=== PATIENT | male | born 1950 | race Caucasian/White ===

== ENCOUNTER → 2020-08-05 | Outpatient (CLI) | payer MEDICARE, OTHER | LOC: CPPFTMAIN 08:35 | PROVIDERS: ATTEND Nurse Practitioner Family | DX: R05 Cough (principal) | CPT/HCPCS: 94060; 94726; 94729 ==

== ENCOUNTER → 2020-09-03 | Outpatient (CLI) | payer MEDICARE, OTHER ==
--- NOTE | 2020-09-03 09:36 | XR ---
EXAMINATION TYPE: XR lumbar spine 2 or 3V DATE OF EXAM: 09/03/2020 COMPARISON: None HISTORY: Pain TECHNIQUE: 3 view lumbar spine FINDINGS: There are 5 lumbar-type vertebral bodies. Pedicles are intact. Disc space narrowing is pres ent L4-5. Some disc space narrowing is also present L2-3. Posterior disc space narrowing at L1-2 may be present. Remaining disc heights are preserved. Vertebral body heights are preserved. Alignment is normal. Vascular calcification is within the aorta. IMPRESSION: 1. No acute osseous abnormality three-view lumbar spine
== END | disposition home or self-care (01) ==
LOC: RADXRMAIN 08:50
PROVIDERS: ATTEND Family Medicine
DX: M54.5 Low back pain (principal)
CPT/HCPCS: 72100

== ENCOUNTER 2021-11-09 09:00 | Emergency (ER) | payer MEDICARE, OTHER ==
[2021-11-09] MEDS ORDERED: HYDROmorphone 0.5 MG/0.5 ML SYRINGE IM STA (09:14)
[2021-11-09] MEDS ORDERED: DEXAMETHASONE SOD PHOSPHATE 10 MG/ML 1 ML VIAL IM STA (09:15)
[2021-11-09] MEDS ORDERED: HYDROmorphone 0.5 MG/0.5 ML SYRINGE IVP STA (09:24)
[2021-11-09] MEDS ORDERED: DEXAMETHASONE SOD PHOSPHATE 10 MG/ML 1 ML VIAL IVP STA (09:25)
--- NOTE | 2021-11-09 09:25 | ED ---
General Adult HPI - General Chief complaint: Back Pain/Injury Stated complaint: Rt. hip pain Time Seen by Provider: 11/09/21 09:02 Source: patient, EMS, RN notes reviewed, old records reviewed Mode of arrival: EMS Limitations: no limitations - History of Present Illness Initial comments: 71-year-old male presenting for evaluation of right low back pain, pain in his buttock radiating to his knee. He has a history of sciatica. Yesterday he was lifting about a 5 pound object and felt sudden sharp pain in his low back. He's had pain since this. No fall or trauma. Symptoms are consistent with previous episode of sciatic nerve pain. He denies bowel or bladder incontinence. Denies weakness in the legs. No numbness. - Related Data Previous Rx's Medication Instructions Recorded HYDROcodone/APAP 5-325MG [[place] 1 tab PO Q6HR PRN #12 tab 11/09/21 5-325] Lidocaine 5% Patch [Lidoderm 5% 1 patch TOPICAL DAILY 5 Days #5 11/09/21 Patch] patch methylPREDNISolone Dose Pack 4 mg PO DIRECTED #21 packet 11/09/21 [Medrol Dose Pack] Allergies Allergy/AdvReac Type Severity Reaction Status Date / Time No Known Allergies Allergy Verified 11/09/21 09:13 Review of Systems ROS Statement: Those systems with pertinent positive or pertinent negative responses have been documented in the HPI. ROS Other: All systems not noted in ROS Statement are negative. Past Medical History Past Medical History: Cancer, Hypertension, Rheumatoid Arthritis (RA) History of Any Multi-Drug Resistant Organisms: None Reported Past Surgical History: Hernia Repair, Orthopedic Surgery Past Psychological History: No Psychological Hx Reported Smoking Status: Former smoker Past Alcohol Use History: None Reported Past Drug Use History: None Reported General Exam Limitations: no limitations General appearance: alert, in no apparent distress Head exam: Present: atraumatic, normocephalic Eye exam: Present: normal appearance. Absent: PERRL, EOMI ENT exam: Present: normal exam Neck exam: Present: normal inspection. Absent: tenderness, meningismus Respiratory exam: Present: normal lung sounds bilaterally. Absent: respiratory distress, wheezes Cardiovascular Exam: Present: regular rate, normal rhythm GI/Abdominal exam: Present: soft. Absent: distended, tenderness, guarding, rebound Extremities exam: Present: normal inspection, normal capillary refill Back exam: Present: paraspinal tenderness (Lower lumbar tenderness over sciatic nerve, upper buttock.) Neurological exam: Present: alert, oriented X3, CN II-XII intact, reflexes normal (2+ patellar reflexes bilaterally). Absent: motor sensory deficit Psychiatric exam: Present: normal affect, normal mood Skin exam: Present: warm, dry, intact. Absent: cyanosis, diaphoretic Course Vital Signs 11/09/21 09:04 Temperature 97.9 F Pulse Rate 65 Respiratory 20 Rate Blood Pressure 142/87 O2 Sat by Pulse 98 Oximetry Medical Decision Making - Medical Decision Making 71-year-old male with acute on chronic sciatic pain. Patient well-appearing, no alarming features. X-ray negative for fracture. There is some degenerative changes. He feels better on reevaluation. 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 He'll be prescribed pain medication. And is given strict return parameters. Disposition Clinical Impression: Sciatica Disposition: HOME SELF-CARE Condition: Fair Instructions (If sedation given, give patient instructions): Acute Low Back Pain (ED) Prescriptions: Lidocaine 5% Patch [Lidoderm 5% Patch] 1 patch TOPICAL DAILY 5 Days #5 patch methylPREDNISolone Dose Pack [Medrol Dose Pack] 4 mg PO DIRECTED #21 packet HYDROcodone/APAP 5-325MG [[place] 5-325] 1 tab PO Q6HR PRN #12 tab PRN Reason: Pain Is patient prescribed a controlled substance at d/c from ED?: No Referrals: None,Stated [Primary Care Provider] - 1-2 days Sudha Johnson MD [STAFF PHYSICIAN] - 1-2 days Wu Brooks MD [REFERRING] - 1-2 days Time of Disposition: 10:25
--- NOTE | 2021-11-09 09:40 | XR ---
EXAMINATION TYPE: XR lumbosacral spine min 4V DATE OF EXAM: 11/09/2021 9:33 AM INDICATION: Patient age:Male; 71 years old; Reason for study: pain; COMPARISON: 09/03/2020 TECHNIQUE: Frontal, lateral , bilateral oblique and coned in L5-S1 lateral views of the spine. FINDINGS: No evidence of any acute osseous pathology. No evidence of loss of vertebral body height i s seen. There is normal alignment of the lumbar vertebral bodies. No evidence of any acute osseous pa thology. Mild scattered disc space narrowing. Multilevel marginal osteophyte formation throughout the visualized spine. There is facet joint arthropathy throughout the spine. Scattered at least mild luna ral foraminal stenosis. Postsurgical changes in the right lower quadrant. Atherosclerosis of the norbert rial vasculature including the aorta. IMPRESSION: 1. No acute fracture. 2. Mild multilevel disc degeneration.
[2021-11-09] MEDS ORDERED: HYDROcodone/APAP 5-325MG 1 EACH TAB PO STA (10:23)
[2021-11-09 10:56] VITALS: BP 140/71; PULSE 61; RESP 18; TEMP 98.4
== END 2021-11-09 10:56 | disposition home or self-care (01) ==
LOC: EC 09:00
DX: M54.41 Lumbago with sciatica, right side (principal); I10 Essential (primary) hypertension; Z87.891 Personal history of nicotine dependence
CPT/HCPCS: 72110; 99283; 96374; 96375; J1100; J1170

== ENCOUNTER → 2022-01-05 | Outpatient (CLI) | payer MEDICARE, OTHER ==
--- NOTE | 2022-01-05 12:06 | XR ---
EXAMINATION TYPE: XR chest 2V DATE OF EXAM: 01/05/2022 COMPARISON: None INDICATION: Presurgical testing TECHNIQUE: Frontal and lateral views of the chest are obtained. FINDINGS: The heart size is normal. The pulmonary vasculature is normal. The lungs are clear. IMPRESSION: 1. No acute pulmonary process.
[2022-01-05 14:42] LABS: INR 0.9 (<1.2); Prothrombin Time 9.5 sec (9.0-12.0)
[2022-01-05 18:30] LABS: Basophils # (A) 0.03 X 10*3/uL (0.00-0.10); Basophils % (A) 0.3 %; Eosinophils # (A) 0.01 X 10*3/uL (0.04-0.35); Eosinophils % (A) 0.1 %; HCT 38.7 % (39.6-50.0); HGB 12.3 g/dL (13.0-17.0); Immature Grans, Automated 1.6 %; Lymphocytes # (A) 0.51 X 10*3/uL (0.90-5.00); Lymphocytes % (A) 5.6 %; MCH 32.5 pg (27.0-32.0); MCHC 31.8 g/dL (32.0-37.0); MCV 102.4 fL (80.0-97.0); Mean Platelet Volume 10.8 fL (9.5-12.2); Monocytes % (A) 4.4 %; NRBC Per 100 WBC 0 /100 WBCS (0.0-0.0); Platelet Count 177 X 10*3/uL (140-440); RBC 3.78 X 10*6/uL (4.40-5.60); RDW 14.5 % (11.5-14.5)
[2022-01-05 18:35] LABS: Anion Gap 12.9 mmol/L (10.00-18.00); BUN/Creat Ratio 14.76 Ratio (12.00-20.00); Blood Urea Nitrogen 25.1 mg/dL (9.0-27.0); Calcium 9.1 mg/dL (8.7-10.3); Carbon Dioxide 23.1 mmol/L (20.0-27.5); Non-African American GFR(CKD) 39.7 (60.0-200.0); Potassium 4.5 mmol/L (3.5-5.5)
[2022-01-05 20:43] LABS: Appearance,Urine Clear (Clear); Bilirubin,Urine Negative (Negative); Blood,Urine Negative (Negative); Color,Urine Dark Yellow (Yellow); Ketones,Urine Negative (Negative); Nitrite,Urine Negative (Negative); Urobilinogen,Urine 0.2 (0.2,1.0)
== END | disposition home or self-care (01) ==
LOC: LABPAT 10:35
PROVIDERS: ATTEND Orthopaedic Surgery Orthopaedic Surgery of the Spine
DX: Z01.818 Encounter for other preprocedural examination (principal)
CPT/HCPCS: 36415; 71046; 80048; 81001; 85025; 85610; 85730; 93005

== ENCOUNTER → 2022-01-20 | Day surgery (SDC) | payer MEDICARE, OTHER ==
[2022-01-15 11:43] VITALS: BMI 27.6
[~2022-01-20] MED LIST: ASCORBIC ACID 500 MG TAB PO SCH; BENZOCAINE/MENTHOL LOZENG 1 EACH LOZENGE MUCOUS MEM PRN; BUPIVACAINE (PF) 0.5% 30 ML VIAL SQ ONE; CHOLECALCIFEROL 125 MCG (5000 IU) TABLET PO SCH; CYCLOBENZAPRINE 10 MG TAB PO PRN; DEXAMETHASONE SOD PHOSPHATE 4 MG/ML 1 ML VIAL IV ONE; FAMOTIDINE 20 MG TAB PO SCH; GELATIN SPONGE,ABSORB (LARGE) 1 EACH SPONGE TOPICAL ONE; HYDROXYCHLOROQUINE SULFATE 200 MG TAB PO SCH; HYDROcodone/APAP 5-325MG 1 EACH TAB PO PRN; HYDROmorphone (PF) 1 MG/ML ONE; HYDROmorphone 0.5 MG/0.5 ML SYRINGE IVP PRN; IBUPROFEN 600 MG TAB PO SCH; LACTATED RINGERS 1,000 ML IV ONE; LACTATED RINGERS 1,000 ML IV SCH; LEFLUNOMIDE 20 MG TAB PO SCH; LEVOTHYROXINE 88 MCG TAB PO SCH; LIDOCAINE 0.5%-EPI 1:200,000 50 ML VIAL SQ ONE; LIDOCAINE 1% (10MG/ML) FOR IV START INTRADERMA PRN; LIDOCAINE 2% INJ 20 MG/ML (2 ML VIAL) ONE; LOPERAMIDE 2 MG CAP PO PRN; MIDAZOLAM 2 MG/2 ML VIAL IV PRN; MIDAZOLAM 2 MG/2 ML VIAL ONE; NON FORMULARY DRUG (Carvedilol [Coreg] 25 MG Tablet) PO SCH; NON FORMULARY DRUG (Vitamin K2 [Vitamin K2] 100 MCG Capsule) PO SCH; NON FORMULARY DRUG (Zinc Gluconate 50 MG Tab) PO SCH; NORTRIPTYLINE 25 MG CAP PO SCH; ONDANSETRON 4 MG/2 ML VIAL IVP ONE; ONDANSETRON 4 MG/2 ML VIAL IVP PRN; PROPOFOL 10 MG/ML 20 ML VIAL IV ONE; SODIUM CHLORIDE 0.9% 1,000 ML IV SCH; SUCCINYLCHOLINE CHLORIDE 200 MG/10 ML VIAL IV ONE; THROMBIN (BOVINE) 5,000 UNIT VIAL TOPICAL ONE; amLODIPine 5 MG TAB PO SCH; ceFAZolin 1,000 MG in SODIUM CHLORIDE 0.9% IRRIGATIO 1,000 ML IRRIGATION PRN; fentaNYL (PF) 50 MCG/ML 2 ML AMP ONE; methylPREDNISolone ACETATE 80 MG/ML 1 ML VIAL INTRAARTIC ONE
--- NOTE | 2022-01-20 16:39 | FL ---
Fluoroscopy INDICATION: Pain FINDINGS: Fluoroscopy time: 3 seconds. Images obtained: 1. IMPRESSIONS: 1. Documentation of fluoroscopy.
--- NOTE | 2022-01-20 16:42 | P.OP ---
Date of Procedure: 01/20/22 Preoperative Diagnosis: L3 4 far lateral disc herniation, right lower extremity radiculopathy, reduction may weakness, degenerative disc disease Postoperative Diagnosis: Same Anesthesia: GETA Pathology: none sent Condition: stable Disposition: PACU Description of Procedure: BRIEF OPERATIVE NOTE Preoperative Diagnosis:L3 4 far lateral disc herniation, right lower extremity radiculopathy, reduction may weakness, degenerative disc disease Postoperative Diagnosis:L3 4 far lateral disc herniation, right lower extremity radiculopathy, reduction may weakness, degenerative disc disease Procedure: Laminectomy and decompression L3 4 with partial medial facetectomy and foraminotomy for decompression Discectomy for decompression L3 4 Surgeon: Dr. Malcolm Big Data Developer: Júnior Wheeler is present throughout the entire the case persistence during positioning, dissection, exposure, visualization, and all crucial elements of the case as well as closure. Anesthesia: General anesthesia per Dr. Woods Estimated blood loss: Approximately 50 mL Complications: None apparent Components implanted: None Disposition: To recovery room in good stable condition. OPERATIVE INDICATIONS The patient has been having issues in their lower back and lower extremities. He is having significant right lower extremity radicular pain or and L3 distri bution. He was having essentially incapacitating pain and was significantly debilitated due to this. The patient has been through conservative treatment. He is not having any lasting benefit despite despite aggressive conservative care. His found have a large far lateral disc herniation L3 4 which correlated well with his lower extremity symptoms. He has a number of other degenerative changes in his low back but we felt that the disc herniation L3 4 was the primary source of his symptoms. We discussed various treatment options including surgery, and the patient wishes to proceed with surgery We discussed the risk, patient's alternatives and benefits of surgery including but not limited to, risk of bleeding risk of infection, risk of need for further surgery, risk of decreased, loss of motion, loss of function, nerve damage, paralysis, heart attack, blindness and . OPERATIVE SUMMARY After discussing all the risks, patient alternatives and benefits at length, the patient elected to proceed with surgical intervention, signed informed consent, and presented for their procedure. The patient was seen and examined in the preoperative holding area and the surgical site was marked. The patient was given antibiotics and brought to the operating room. The patient was sedated and intubated by anesthesia in standard fashion. The patient was positioned on to the operating room table in a prone position on the appropriate frame which was well-padded and well molded. We were careful to pad any bony prominences and pressure points. We were careful to maintain the patient's cervical spine and good neutral alignment and position throughout. The patient was prepped and draped in a normal standard fashion. An appropriate timeout and keystone protocol performed. We were able to proceed with the surgery. Fluoroscopy was utilized to establish the appropriate level at L3 4. The local wound area was infiltrated with local anesthetic. An incision was made at the midline longitudinally over the appropriate levels. Dissection was taken down subcutaneously to the level of the fascia which was split midline. Dissection was taken over the lamina. Intraoperative fluoroscopy was taken which showed a marker at the appropriate level of L3 4. With the appropriate level positively confirmed, we were able to proceed with laminectomy. The wound was copiously irrigated and suctioned dry as had been done periodically throughout the case. I performed a laminectomy with a combination of curettes and a high-speed bur and Kerrison rongeurs. A small medial facetectomy was performed again further access. A partial foraminotomy was also performed. I had to get somewhat lateral at L3 4 sac gain access to the disc that was herniated. Portions of the ligamentum flavum were taken down to expose the dura and traversing nerve root. I was able to mobilize the traversing nerve root and gain access to the disc space. I was also able to dissect out at a foraminal space with her significant disc protrusion and herniation. Note was made of obvious compression from the disc. Protecting the soft tissue structures, a small annulotomy was established. I was able to pe rform discectomy and remove any extruded disc fragments and any loose fragments from within the disc itself. There is some disc desiccation noted. I tried to preserve the disc annulus that appeared stable. I had to be sure to extend to the far lateral space to get all disc fragments. I felt we had excellent decompression. There were no further extruded fragments noted. There is no evidence of dural tear or leak. Good hemostasis maintained. The wound was copiously irrigated and suctioned dry. Good decompression and discectomy was noted. We were able to proceed with closure. The fascia was closed for a watertight closure. The subcuticular tissue was closed with absorbable suture. The wound was cleaned and dried and dressed with the appropriate dressing. The drapes were broken down. The patient was gently rolled back onto their hospital bed being careful to maintain their cervical spine and good neutral alignment and position. They were woken up by anesthesia, extubated, and brought to the recovery room in good stable condition. The patient will be admitted to the hospital for observation and for appropriate postoperative care, medical management and monitoring. We will continue to follow them closely about the postoperative course.
--- NOTE | 2022-01-20 16:49 | XR ---
Fluoroscopy INDICATION: Pain FINDINGS: Fluoroscopy time: 3 seconds. Images obtained: One. IMPRESSIONS: 1. Documentation of fluoroscopy.
[2022-01-20 16:51] VITALS: TEMP 98.2
[2022-01-20 18:43] VITALS: RESP 16
[2022-01-20 18:51] VITALS: BP 143/78; PULSE 82
== END | disposition home or self-care (01) ==
LOC: OR 11:28
PROVIDERS: ATTEND Orthopaedic Surgery Orthopaedic Surgery of the Spine
DX: M51.16 Intervertebral disc disorders with radiculopathy, lumbar region (principal); I10 Essential (primary) hypertension; M19.90 Unspecified osteoarthritis, unspecified site; E07.9 Disorder of thyroid, unspecified; K21.9 Gastro-esophageal reflux disease without esophagitis; Z79.890 Hormone replacement therapy; Z79.899 Other long term (current) drug therapy
CPT/HCPCS: 63047; 72020; J2250; J0330; J1040; J0690 ×2; J2405; J3010; J1170; J2704; J2001

== ENCOUNTER 2023-03-21 10:25 | Emergency (ER) | payer MEDICARE, OTHER ==
--- NOTE | 2023-03-21 10:51 | ED ---
Recheck HPI - General Chief Complaint: Recheck/Abnormal Lab/Rx Stated Complaint: MED REFILL Time Seen by Provider: 03/21/23 10:42 Source: patient, RN notes reviewed Mode of arrival: ambulatory Limitations: no limitations - History of Present Illness Initial Comments: This is a 72-year-old male who presents to the emergency department for medication refills. He was unable to get ahold of his primary care provider, and states that he needs refills on his nortriptyline and carvedilol. He is taking both medications as prescribed. Patient otherwise denies any concerns or complaints. MD Complaint: medication refill request - Related Data Home Medications Medication Instructions Recorded Confirmed Ascorbic Acid [Vitamin C] 500 mg PO DAILY 01/15/22 01/15/22 Cholecalciferol [Vitamin D3 (125 5 tab PO DAILY 01/15/22 01/15/22 Mcg = 5000 Iu)] Famotidine [Pepcid] 20 mg PO BID 01/15/22 01/15/22 Hydrocodone/Acetaminophen 0.5 each PO Q4-6H PRN 01/15/22 01/15/22 [Hydrocodon-Acetaminophen 5-325] Hydroxychloroquine Sulfate 200 mg PO BID 01/15/22 01/15/22 [Plaquenil] Leflunomide [Arava] 20 mg PO DAILY 01/15/22 01/15/22 Levothyroxine Sodium [Synthroid] 44 mcg PO DAILY 01/15/22 01/15/22 Loperamide [Imodium] 2 mg PO TID PRN 01/15/22 01/15/22 Nortriptyline [Pamelor] 25 mg PO HS 01/15/22 01/15/22 Orencia (Unknown Dose) 1 dose IV QMONTHLY 01/15/22 Vitamin K2 [Vitamin K-2] 100 mcg PO DAILY 01/15/22 01/15/22 Zinc Gluconate [Zinc] 50 mg PO DAILY 01/15/22 01/15/22 amLODIPine [Norvasc] 5 mg PO HS 01/15/22 01/15/22 carvediloL [Coreg] 25 mg PO BID 01/15/22 01/15/22 Previous Rx's Medication Instructions Recorded HYDROcodone/APAP 5-325MG [[place] 1 tab PO Q4HR PRN 7 Days #42 tab 01/20/22 5-325] Nortriptyline [Pamelor] 25 mg PO HS #30 capsule 03/21/23 carvediloL 25 mg PO BID #60 tablet 03/21/23 Allergies Allergy/AdvReac Type Severity Reaction Status Date / Time No Known Allergies Allergy Verified 01/15/22 11:05 Review of Systems ROS Statement: Those systems with pertinent positive or pertinent negative responses have been documented in the HPI. ROS Other: All systems not noted in ROS Statement are negative. Past Medical History Past Medical History: Cancer, Deep Vein Thrombosis (DVT), Hypertension, Rheumatoid Arthritis (RA), Thyroid Disorder Additional Past Medical History / Comment(s): HX RECTAL CANCER WITH SURGERY, CHEMO & RADIATION [place] (2008)- , FREQUENT DIARRHEA., HX OF DVT'S .,BELCHING/GAS., TINNITUS, BACK PAIN History of Any Multi-Drug Resistant Organisms: None Reported Past Surgical History: Bowel Resection, Hernia Repair, Orthopedic Surgery Additional Past Surgical History / Comment(s): 3 HERNIA'S YON INGUINAL AND STOMACH., YON ELBOW SURGERY , LEFT SHOULDER, BOWEL RESECTION /COLOSTOMY AND THEN REVERSED. Past Anesthesia/Blood Transfusion Reactions: No Reported Reaction, Motion Sickness Past Psychological History: No Psychological Hx Reported Smoking Status: Former smoker Past Alcohol Use History: Rare Past Drug Use History: None Reported - Past Family History Mother Family Medical History: No Reported History General Exam Limitations: no limitations General appearance: alert, in no apparent distress Head exam: Present: atraumatic, normocephalic, normal inspection Respiratory exam: Present: normal lung sounds bilaterally. Absent: respiratory distress, wheezes, rales, rhonchi, stridor Cardiovascular Exam: Present: regular rate, normal rhythm, normal heart sounds. Absent: systolic murmur, diastolic murmur, rubs, gallop, clicks Neurological exam: Present: alert, oriented X3, CN II-XII intact Psychiatric exam: Present: normal affect, normal mood Skin exam: Present: warm, dry, intact, normal color. Absent: rash Course Vital Signs 03/21/23 10:37 Temperature 98.0 F Pulse Rate 74 Respiratory 18 Rate Blood Pressure 154/73 O2 Sat by Pulse 97 Oximetry Medical Decision Making - Medical Decision Making This is a 72-year-old male who presents to the emergency department for medication refills. Was pt. sent in by a medical professional or institution? @ -No Did you speak to anyone other than the patient for history? @ -No Did you review nursing and triage notes? @ -Yes, and I agree, it is accurate with regards to the patient's symptoms. Were old charts reviewed? @ -No Differential Diagnosis? @ -Not applicable EKG interpreted by me (3pts min.)? @ -Not obtained X-rays interpreted by me (1pt min.)? @ -Not obtained CT interpreted by me (1pt min.)? @ -Not obtained U/S interpreted by me (1pt. min.)? @ -Not obtained What testing was considered but not performed? (CT, X-rays, U/S, labs)? Why? @ -None What meds were considered but not given? Why? @ -None Did you discuss the management of the patient with other professionals? @ -No Did you reconcile home meds? @ -No Was smoking cessation discussed for >3mins.? @ -No Was critical care preformed (if so, how long)? @ -No Were there social determinants of health that impacted care today? How? (Homelessness, low income, unemployed, alcoholism, drug addiction, transportation, low edu. Level, literacy, decrease access to med. care, penitentiary, rehab)? @ -No Was there de-escalation of care discussed even if they declined? (Discuss DNR or withdrawal of care, Hospice)? @ -No What co-morbidities impacted this encounter? (DM, HTN, Smoking, COPD, CAD, Cancer, CVA, Hep., AIDS, mental health diagnosis, sleep apnea, morbid obesity)? @ -HTN Was patient admitted / discharged? @ -Discharged. Refill on carvedilol and nortriptyline provided as requested. Otherwise advised to follow-up with his primary care provider for routine medication management. Patient discharged home in stable condition. Undiagnosed new problem with uncertain prognosis? @ -None Drug Therapy requiring intensive monitoring for toxicity (Heparin, Nitro, Insulin, Cardizem)? @ -None Were any procedures done? @ -None Diagnosis/symptom? @ -Encounter for medication refill Acute, or Chronic, or Acute on Chronic? @ -Acute Uncomplicated (without systemic symptoms) or Complicated (systemic symptoms)? @ -Uncomplicated Side effects of treatment? @ -None Exacerbation, Progression, or Severe Exacerbation] @ -Not applicable Poses a threat to life or bodily function? @ -No Return precautions reviewed in depth, the patient is instructed to return to the emergency department with any new, worsening, or concerning symptoms. Patient verbalized understanding. This case was discussed in detail with the attending ED physician, Dr. Loera. Presentation, findings, and treatment plan discussed in detail as well. Disposition Clinical Impression: Encounter for medication refill Disposition: HOME SELF-CARE Additional Instructions: Return to the emergency department with any new, worsening, or concerning symptoms. Prescriptions: carvediloL 25 mg PO BID #60 tablet Nortriptyline [Pamelor] 25 mg PO HS #30 capsule Is patient prescribed a controlled substance at d/c from ED?: No Referrals: Erickson Tubbs MD [Primary Care Provider] - 1-2 days Time of Disposition: 10:51
[2023-03-21 11:03] VITALS: BP 154/73; PULSE 74; RESP 18; TEMP 98
== END 2023-03-21 11:27 | disposition home or self-care (01) ==
LOC: EC 10:25
DX: Z76.0 Encounter for issue of repeat prescription (principal); I10 Essential (primary) hypertension; E07.9 Disorder of thyroid, unspecified; M06.9 Rheumatoid arthritis, unspecified; Z79.890 Hormone replacement therapy; Z79.899 Other long term (current) drug therapy; Z87.891 Personal history of nicotine dependence; Z86.718 Personal history of other venous thrombosis and embolism
CPT/HCPCS: 99282

== ENCOUNTER 2024-03-04 13:13 | Inpatient (IN) | payer MEDICARE, OTHER ==
--- NOTE | 2024-03-04 13:33 | ED ---
General Adult HPI - General Chief complaint: Dizziness Stated complaint: dizzy Time Seen by Provider: 03/04/24 13:18 Source: patient, family, RN notes reviewed Mode of arrival: wheelchair Limitations: no limitations - History of Present Illness Initial comments: Patient is a 73-year-old male present to the emergency department with concerns with lightheadedness. Onset of symptoms was a couple of months ago however do progressively worsen. Patient at times has some dyspnea. Patient also at times has some minimal chest discomfort. Blood pressure at home has been variable. Heart rate has been as low as 40. - Related Data Home Medications Medication Instructions Recorded Confirmed Hydroxychloroquine Sulfate 200 mg PO BID 01/15/22 01/15/22 [Plaquenil] Loperamide [Imodium] 2 mg PO TID PRN 01/15/22 01/15/22 Orencia (Unknown Dose) 1 dose IV QMONTHLY 01/15/22 amLODIPine [Norvasc] 5 mg PO HS 01/15/22 01/15/22 carvediloL [Coreg] 25 mg PO BID 01/15/22 01/15/22 Levothyroxine Sodium [Synthroid] 25 mcg PO DIRECTED 03/04/24 03/04/24 Rosuvastatin [Crestor] 20 mg PO HS 03/04/24 03/04/24 Previous Rx's Medication Instructions Recorded Nortriptyline [Pamelor] 25 mg PO HS #30 capsule 03/21/23 Allergies Allergy/AdvReac Type Severity Reaction Status Date / Time No Known Allergies Allergy Verified 03/04/24 14:56 Review of Systems ROS Statement: Those systems with pertinent positive or pertinent negative responses have been documented in the HPI. ROS Other: All systems not noted in ROS Statement are negative. Constitutional: Denies: fever Eyes: Denies: eye pain ENT: Denies: ear pain Respiratory: Reports: as per HPI Cardiovascular: Reports: as per HPI Endocrine: Reports: fatigue Gastrointestinal: Denies: abdominal pain Past Medical History Past Medical History: Cancer, Deep Vein Thrombosis (DVT), Hypertension, Rheumatoid Arthritis (RA), Thyroid Disorder Additional Past Medical History / Comment(s): HX RECTAL CANCER WITH SURGERY, CHEMO & RADIATION [place] (2008)- , FREQUENT DIARRHEA., HX OF DVT'S .,BELCHING/GAS., TINNITUS, BACK PAIN History of Any Multi-Drug Resistant Organisms: None Reported Past Surgical History: Bowel Resection, Hernia Repair, Orthopedic Surgery Additional Past Surgical History / Comment(s): 3 HERNIA'S YON INGUINAL AND STOMACH., YON ELBOW SURGERY , LEFT SHOULDER, BOWEL RESECTION /COLOSTOMY AND THEN REVERSED. Past Anesthesia/Blood Transfusion Reactions: No Reported Reaction, Motion Sickness Past Psychological History: No Psychological Hx Reported Smoking Status: Former smoker Past Alcohol Use History: Rare Past Drug Use History: None Reported - Past Family History Mother Family Medical History: No Reported History General Exam Limitations: no limitations General appearance: alert, in no apparent distress Head exam: Present: atraumatic Eye exam: Present: normal appearance, PERRL, EOMI ENT exam: Present: normal oropharynx Neck exam: Present: normal inspection Respiratory exam: Present: normal lung sounds bilaterally Cardiovascular Exam: Present: bradycardia GI/Abdominal exam: Present: soft. Absent: distended, tenderness Extremities exam: Present: normal inspection. Absent: pedal edema, calf tenderness Neurological exam: Present: alert Psychiatric exam: Present: normal affect, normal mood Skin exam: Present: normal color Course Vital Signs 03/04/24 13:14 Temperature 97.8 F Pulse Rate 55 L Respiratory 16 Rate Blood Pressure 126/61 O2 Sat by Pulse 98 Oximetry EKG Findings - EKG Results: EKG: interpreted by ERMD (Appearance of sinus bradycardia with short MN. Left axis.), normal QRS, normal ST/T EKG shows: bradycardia Medical Decision Making - Medical Decision Making Was pt. sent in by a medical professional or institution (, PA, [employer]ER, urgent care, hospital, or custodial...) When possible be specific @ -No Did you speak to anyone other than the patient for history (EMS, parent, family, police, friend...)? What history was obtained from this source @ - provides significant history including medication list Did you review nursing and triage notes (agree or disagree)? Why? @ -I reviewed and agree with nursing and triage notes Were old charts reviewed (outside hosp., previous admission, EMS record, old EKG, old radiological studies, urgent care reports/EKG's, custodial records)? Report findings @ -No old charts were reviewed Differential Diagnosis (chest pain, altered mental status, abdominal pain women, abdominal pain men, vaginal bleeding, weakness, fever, dyspnea, syncope, headache, dizziness, GI bleed, back pain, seizure, CVA, palpatations, mental health, musculoskeletal)? @ -Differential Dizziness: Benign paroxysmal positional Vertigo, Meniere's disease, otitis media, acoustic neuroma, vertebrobasilar insufficiency, cerebellar stroke, encephalitis, hypovolemic, arrhythmia, coronary artery syndrome, anemia, this is not meant to be an all-inclusive list EKG interpreted by me (3pts min.). @ -As above X-rays interpreted by me (1pt min.). @ -Chest x-ray without acute abnormality CT interpreted by me (1pt min.). @ -None done U/S interpreted by me (1pt. min.). @ -None done What testing was considered but not performed or refused? (CT, X-rays, U/S, labs)? Why? @ -None What meds were considered but not given or refused? Why? @ -None Did you discuss the management of the patient with other professionals (professionals i.e. , PA, [employer]ER, lab, RT, psych nurse, director of social work, event planning intern, teacher, licensed mortgage loan officer, window caser)? Give summary @ -Case discussed with Dr. Goodwin who will admit covering Dr. Santizo Was smoking cessation discussed for >3mins.? @ -No Was critical care preformed (if so, how long)? @ -No Were there social determinants of health that impacted care today? How? (Homelessness, low income, unemployed, alcoholism, drug addiction, transportation, low edu. Level, literacy, decrease access to med. care, fpc, rehab)? @ -No Was there de-escalation of care discussed even if they declined (Discuss DNR or withdrawal of care, Hospice)? DNR status @ -No What co-morbidities impacted this encounter? (DM, HTN, Smoking, COPD, CAD, Cancer, CVA, ARF, Chemo, Hep., AIDS, mental health diagnosis, sleep apnea, morbid obesity)? @ -History of hypertension and renal insufficiency Was patient admitted / discharged? Hospital course, mention meds given and route, prescriptions, significant lab abnormalities, going to OR and other pertinent info. @ -Patient presents with lightheadedness. Patient is bradycardic. Coreg will be held to reevaluate heart rate. Patient will be admitted with monitoring and consults. Patient reevaluated and updated. Admission orders placed. Undiagnosed new problem with uncertain prognosis? @ -No Drug Therapy requiring intensive monitoring for toxicity (Heparin, Nitro, Insulin, Cardizem)? @ -No Were any procedures done? @ -No Diagnosis/symptom? @ -Lightheadedness, bradycardia Acute, or Chronic, or Acute on Chronic? @ -Acute, acute Uncomplicated (without systemic symptoms) or Complicated (systemic symptoms)? @ -Complicated with renal insufficiency, worsening from baseline Side effects of treatment? @ -No Exacerbation, Progression, or Severe Exacerbation? @ -No Poses a threat to life or bodily function? How? (Chest pain, USA, MA, pneumonia, PE, COPD, DKA, ARF, appy, cholecystitis, CVA, Diverticulitis, Homicidal, Suicidal, threat to staff... and all critical care pts) @ -Threat to cardiac function - Lab Data Result diagrams: 03/04/24 13:57 03/04/24 13:57 Lab Results 03/04/24 03/04/24 03/04/24 Range/Units 13:57 13:57 13:57 WBC 7.7 (3.8-10.6) k/uL RBC 3.59 L (4.30-5.90) m/uL Hgb 11.5 L (13.0-17.5) gm/dL Hct 34.2 L (39.0-53.0) % MCV 95.3 (80.0-100.0) fL MCH 32.0 (25.0-35.0) pg MCHC 33.6 (31.0-37.0) g/dL RDW 13.7 (11.5-15.5) % Plt Count 180 (150-450) k/uL MPV 8.4 Neutrophils % 64 % Lymphocytes % 19 % Monocytes % 8 % Eosinophils % 6 % Basophils % 1 % Neutrophils # 4.9 (1.3-7.7) k/uL Lymphocytes # 1.5 (1.0-4.8) k/uL Monocytes # 0.6 (0-1.0) k/uL Eosinophils # 0.5 (0-0.7) k/uL Basophils # 0.1 (0-0.2) k/uL PT 11.3 (10.0-12.5) sec INR 1.0 (<1.2) APTT 22.9 (22.0-30.0) sec D-Dimer 0.49 (<0.60) mg/L FEU Sodium 137 (137-145) mmol/L Potassium 4.5 (3.5-5.1) mmol/L Chloride 108 H (98-107) mmol/L Carbon Dioxide 16 L (22-30) mmol/L Anion Gap 13 mmol/L BUN 26 H (9-20) mg/dL Creatinine 2.33 H (0.66-1.25) mg/dL Est GFR (CKD-EPI)AfAm 31 (>60 ml/min/1.73 sqM) Est GFR (CKD-EPI)NonAf 27 (>60 ml/min/1.73 sqM) Glucose 112 H (74-99) mg/dL Calcium 8.9 (8.4-10.2) mg/dL Magnesium 1.7 (1.6-2.3) mg/dL Total Bilirubin 0.4 (0.2-1.3) mg/dL AST 20 (17-59) U/L ALT 17 (4-49) U/L Alkaline Phosphatase 99 (38-126) U/L Troponin I (0.000-0.034) ng/mL Total Protein 5.3 L (6.3-8.2) g/dL Albumin 3.3 L (3.5-5.0) g/dL TSH 1.120 (0.465-4.680) mIU/L Free T4 0.93 (0.78-2.19) ng/dL 03/04/24 Range/Units 13:57 WBC (3.8-10.6) k/uL RBC (4.30-5.90) m/uL Hgb (13.0-17.5) gm/dL Hct (39.0-53.0) % MCV (80.0-100.0) fL MCH (25.0-35.0) pg MCHC (31.0-37.0) g/dL RDW (11.5-15.5) % Plt Count (150-450) k/uL MPV Neutrophils % % Lymphocytes % % Monocytes % % Eosinophils % % Basophils % % Neutrophils # (1.3-7.7) k/uL Lymphocytes # (1.0-4.8) k/uL Monocytes # (0-1.0) k/uL Eosinophils # (0-0.7) k/uL Basophils # (0-0.2) k/uL PT (10.0-12.5) sec INR (<1.2) APTT (22.0-30.0) sec D-Dimer (<0.60) mg/L FEU Sodium (137-145) mmol/L Potassium (3.5-5.1) mmol/L Chloride (98-107) mmol/L Carbon Dioxide (22-30) mmol/L Anion Gap mmol/L BUN (9-20) mg/dL Creatinine (0.66-1.25) mg/dL Est GFR (CKD-EPI)AfAm (>60 ml/min/1.73 sqM) Est GFR (CKD-EPI)NonAf (>60 ml/min/1.73 sqM) Glucose (74-99) mg/dL Calcium (8.4-10.2) mg/dL Magnesium (1.6-2.3) mg/dL Total Bilirubin (0.2-1.3) mg/dL AST (17-59) U/L ALT (4-49) U/L Alkaline Phosphatase (38-126) U/L Troponin I <0.012 (0.000-0.034) ng/mL Total Protein (6.3-8.2) g/dL Albumin (3.5-5.0) g/dL TSH (0.465-4.680) mIU/L Free T4 (0.78-2.19) ng/dL Disposition Clinical Impression: Bradycardia Disposition: ADMITTED IP TO THIS HOSP Is patient prescribed a controlled substance at d/c from ED?: No Referrals: Chau Santizo MD [Primary Care Provider] - 1-2 days Time of Disposition: 15:04
[2024-03-04 14:11] LABS: Basophils # (A) 0.1 k/uL (0-0.2); Basophils % (A) 1 %; Eosinophils # (A) 0.5 k/uL (0-0.7); Eosinophils % (A) 6 %; HCT 34.2 % (39.0-53.0); HGB 11.5 gm/dL (13.0-17.5); Lymphocytes # (A) 1.5 k/uL (1.0-4.8); Lymphocytes % (A) 19 %; MCHC 33.6 g/dL (31.0-37.0); MCV 95.3 fL (80.0-100.0); Mean Platelet Volume 8.4; Monocytes # (A) 0.6 k/uL (0-1.0); Monocytes % (A) 8 %; Neutrophils # (A) 4.9 k/uL (1.3-7.7); Neutrophils % (A) 64 %; Platelet Count 180 k/uL (150-450); RBC 3.59 m/uL (4.30-5.90); RDW 13.7 % (11.5-15.5); WBC 7.7 k/uL (3.8-10.6)
--- NOTE | 2024-03-04 14:22 | XR ---
EXAMINATION TYPE: XR chest 2V DATE OF EXAM: 03/04/2024 2:17 PM COMPARISON: Prior chest radiograph 01/05/2022. CLINICAL INDICATION: Male, 73 years old with history of Chest Pain; [facility] TECHNIQUE: XR chest 2V Frontal and lateral views of the chest. FINDINGS: Lungs/Pleura: There is no evidence of pleural effusion, focal consolidation, or pneumothorax. Pulmonary vascularity: Unremarkable. Heart/mediastinum: Cardiomediastinal silhouette is unremarkable. Musculoskeletal: No acute osseous pathology. Other findings: None IMPRESSION: No acute cardiopulmonary disease/process. [facility], , 03/04/2024 2:20 PM
[2024-03-04 14:27] LABS: ALT 17 U/L (4-49); AST 20 U/L (17-59); African American GFR (CKD) 31 (>60 ml/min/1.73 sqM); Albumin 3.3 g/dL (3.5-5.0); Alkaline Phosphatase 99 U/L (38-126); Anion Gap 13 mmol/L; Blood Urea Nitrogen 26 mg/dL (9-20); Calcium 8.9 mg/dL (8.4-10.2); Carbon Dioxide 16 mmol/L (22-30); Chloride 108 mmol/L (98-107); Glucose 112 mg/dL (74-99); Magnesium 1.7 mg/dL (1.6-2.3); Non-African American GFR(CKD) 27 (>60 ml/min/1.73 sqM); Potassium 4.5 mmol/L (3.5-5.1); Sodium 137 mmol/L (137-145); Total Bilirubin 0.4 mg/dL (0.2-1.3); Total Protein 5.3 g/dL (6.3-8.2)
[2024-03-04 14:42] LABS: Partial Thromboplastin Time 22.9 sec (22.0-30.0); Prothrombin Time 11.3 sec (10.0-12.5); T4, Free (Free Thyroxine) 0.93 ng/dL (0.78-2.19)
[2024-03-04] MEDS ORDERED: NALOXONE 0.4 MG/ML 1 ML VIAL IV PRN (15:04)
[2024-03-04] MEDS ORDERED: LOPERAMIDE 2 MG CAP PO PRN (15:06)
[2024-03-04] MEDS: SODIUM CHLORIDE 0.9% 1,000 ML IV SCH (16:36)
[2024-03-04] MEDS: MECLIZINE 12.5 MG TAB PO SCH (17:23)
[2024-03-04] MEDS: HEPARIN SODIUM,PORCINE 5,000 UNIT/ML 1 ML VIAL SQ SCH (20:53)
[2024-03-04] MEDS: HYDROXYCHLOROQUINE SULFATE 200 MG TAB PO SCH (20:54)
[2024-03-04] MEDS: NORTRIPTYLINE 25 MG CAP PO SCH (20:54)
[2024-03-04] MEDS: amLODIPine 5 MG TAB PO SCH (20:54)
[2024-03-04] MEDS: ATORVASTATIN 40 MG TAB PO SCH (20:54)
--- NOTE | 2024-03-05 02:36 | HP ---
HISTORY AND PHYSICAL CHIEF COMPLAINT: Sinus bradycardia as well as lightheadedness. HISTORY OF PRESENT ILLNESS: This is a 73-year-old gentleman with a past medical history of multiple medical problems including DVT, hypertension, rheumatoid arthritis, being followed by Dr. Santizo in the outpatient setting, is complaining of lightheadedness. The patient also has some shortness of breath. Minimal chest also complaining of heart rate is found to be 45 and the patient also had some worsening renal failure also according to the family. There is no history of any fever or rigors. PAST MEDICAL HISTORY: DVT, hypertension. The rest of the history and rest of the chart is also reviewed. HOME MEDICATIONS: Reviewed include Crestor. Dose and rest of medications reviewed. ALLERGIES: None. FAMILY HISTORY: No history of heart disease or strokes in the family. SOCIAL HISTORY: Remote history of smoking. PHYSICAL EXAMINATION: VITAL SIGNS: Pulse is 55, blood pressure 120/62, respirations 16. HEENT: Conjunctivae normal. CARDIOVASCULAR: S1, S2. RESPIRATIONS: Breath sounds diminished at the bases. ABDOMEN: Soft. NERVOUS SYSTEM: Nonfocal. LABORATORY DATA: Creatinine 2.33, 1.7. ASSESSMENT: 1. Lightheadedness and weakness, possible acute on chronic renal failure. 2. Severe bradycardia, symptomatic. 3. Chest pain for evaluation. 4. Deep venous thrombosis. 5. Hypertension. 6. History of rheumatoid arthritis. RECOMMENDATIONS AND DISCUSSION: This is a 73-year-old gentleman, who presented with multiple complex medical issues, we will monitor the patient closely. I would recommend to stop the Coreg and continue to monitor. Monitor orthostatic vitals. Nephrology, Cardiology evaluations. Prognosis guarded because of multiple complex medical issues and further recommendations to follow. MMODL / IJN: [id number] / MTDD
[2024-03-05] MEDS: LEVOTHYROXINE 25 MCG TAB PO SCH (05:37)
[2024-03-05 06:25] LABS: Basophils # (A) 0.1 k/uL (0-0.2); Basophils % (A) 1 %; Eosinophils # (A) 0.6 k/uL (0-0.7); Eosinophils % (A) 9 %; HCT 33.8 % (39.0-53.0); Lymphocytes # (A) 1.7 k/uL (1.0-4.8); Lymphocytes % (A) 26 %; MCH 31.3 pg (25.0-35.0); MCHC 32.6 g/dL (31.0-37.0); Mean Platelet Volume 8.2; Monocytes # (A) 0.6 k/uL (0-1.0); Monocytes % (A) 9 %; Neutrophils # (A) 3.4 k/uL (1.3-7.7); Neutrophils % (A) 53 %; Platelet Count 169 k/uL (150-450); RBC 3.52 m/uL (4.30-5.90); RDW 13.8 % (11.5-15.5); WBC 6.5 k/uL (3.8-10.6)
[2024-03-05 06:35] LABS: African American GFR (CKD) 31 (>60 ml/min/1.73 sqM); Anion Gap 8 mmol/L; Blood Urea Nitrogen 22 mg/dL (9-20); Calcium 8.7 mg/dL (8.4-10.2); Carbon Dioxide 19 mmol/L (22-30); Chloride 111 mmol/L (98-107); Glucose 106 mg/dL (74-99); Non-African American GFR(CKD) 27 (>60 ml/min/1.73 sqM); Potassium 3.9 mmol/L (3.5-5.1); Sodium 138 mmol/L (137-145)
--- NOTE | 2024-03-05 10:35 | US ---
EXAMINATION TYPE: US kidneys/renal and bladder DATE OF EXAM: 03/05/2024 COMPARISON: NONE CLINICAL INDICATION: Male, 73 years old with history of CECILIO; TECHNIQUE: Grayscale imaging of the bilateral kidneys and urinary bladder: FINDINGS: EXAM MEASUREMENTS: Right Kidney: 9.8 x 4.5 x 4.8 cm Left Kidney: 9.0 x 4.9 x 4.7 cm Thinning and increased echogenicity of the renal parenchyma. No hydronephrosis on either side. Sample Hand notes: Exam done portable Right Kidney: no masses seen Left Kidney: multiple cysts, largest measuring 4.1cm Bladder: wnl Bilateral Jets seen: no IMPRESSION: 1. Changes of bilateral chronic medical renal disease. 2. No hydronephrosis. 3. Multiple left-sided renal cortical cysts measuring up to 4.1 cm. [facility], Workstation: [id number], 03/05/2024 10:32 AM
--- NOTE | 2024-03-05 10:42 | P.NPCON ---
History of Present Illness - Reason for Consult acute renal failure, chronic renal failure - History of Present Illness Reason for consultation: Acute kidney injury on chronic kidney disease History of present illness: Patient is a 73-year-old male seen in renal consultation for acute kidney injury on chronic kidney disease. Patient states he saw a chore tender over 5 years ago in [place] but has not seen one here in [place]. Patient's creatinine in December 2021 was 1.7 and fairly stable at 2.3 this admission. Patient came to the hospital due to dizziness and lightheadedness. Patient states symptoms started when he was moving wood into the house. He does admit to being short of breath with exertion. Patient denies history of diabetes or coronary artery disease. He does have history of rheumatoid arthritis and is maintained on IV infusions outpatient and also takes Plaquenil. Echocardiogram is pending. Denies any gross hematuria or dysuria. No edema. Vital signs are stable. General: No acute distress. HEENT: Head exam is unremarkable. LUNGS: No audible rhonchi or wheezes. HEART: Rate and Rhythm are regular. ABDOMEN: Nontender. EXTREMITITES: No edema. Past Medical History Past Medical History: Cancer, Deep Vein Thrombosis (DVT), Hypertension, Rheumatoid Arthritis (RA), Thyroid Disorder Additional Past Medical History / Comment(s): HX RECTAL CANCER WITH SURGERY, CHEMO & RADIATION [place] (2008), HX OF DVT'S .,BELCHING/GAS., TINNITUS, BACK PAIN History of Any Multi-Drug Resistant Organisms: None Reported Past Surgical History: Bowel Resection, Hernia Repair, Orthopedic Surgery Additional Past Surgical History / Comment(s): 3 HERNIA'S YON INGUINAL AND STOMACH., YON ELBOW SURGERY, LEFT SHOULDER, BOWEL RESECTION/COLOSTOMY AND THEN REVERSED. Past Anesthesia/Blood Transfusion Reactions: No Reported Reaction, Motion Sickness Past Psychological History: No Psychological Hx Reported Smoking Status: Former smoker Past Alcohol Use History: Rare Additional Past Alcohol Use History / Comment(s): QUIT SMOKING 15 YRS AGO, HX OF 2PPD., STARTED SMOKING TEENAGER. Past Drug Use History: None Reported - Past Family History Mother Family Medical History: Myocardial Infarction (DC) Father Family Medical History: Unable to Obtain Medications and Allergies Home Medications Medication Instructions Recorded Confirmed Type Hydroxychloroquine Sulfate 200 mg PO BID 01/15/22 03/04/24 History [Plaquenil] Loperamide [Imodium] 2 mg PO TID PRN 01/15/22 03/04/24 History Orencia (Unknown Dose) 1 dose IV Q28D 01/15/22 03/04/24 History amLODIPine [Norvasc] 5 mg PO HS 01/15/22 03/04/24 History carvediloL [Coreg] 25 mg PO BID 01/15/22 03/04/24 History Nortriptyline [Pamelor] 25 mg PO HS #30 capsule 03/21/23 03/04/24 Rx Levothyroxine Sodium [Synthroid] 25 mcg PO DIRECTED 03/04/24 03/04/24 History Rosuvastatin [Crestor] 20 mg PO HS 03/04/24 03/04/24 History Allergies Allergy/AdvReac Type Severity Reaction Status Date / Time No Known Allergies Allergy Verified 03/04/24 14:56 Physical Exam Vitals: Vital Signs Temp Pulse Pulse Pulse Pulse Pulse Resp 03/05/24 08:00 18 03/05/24 07:59 97.9 F 68 18 03/05/24 03:38 98.0 F 69 18 03/05/24 01:35 76 71 76 70 18 03/04/24 23:39 98.0 F 70 18 03/04/24 19:44 76 71 76 68 20 03/04/24 19:43 71 20 03/04/24 19:42 98.1 F 68 20 03/04/24 17:26 79 74 74 03/04/24 17:09 76 03/04/24 16:54 98.1 F 76 20 03/04/24 16:11 98.5 F 73 17 03/04/24 13:14 97.8 F 55 L 16 BP BP BP BP BP Pulse Ox 03/05/24 08:00 03/05/24 07:59 136/62 99 03/05/24 03:38 126/67 99 03/05/24 01:35 03/04/24 23:39 130/61 99 03/04/24 19:44 154/66 98 03/04/24 19:43 153/69 100 03/04/24 19:42 158/72 98 03/04/24 17:26 143/79 123/76 149/76 03/04/24 17:09 03/04/24 16:54 145/68 100 03/04/24 16:11 138/68 99 03/04/24 13:14 126/61 98 Intake and Output 03/04/24 03/05/24 03/05/24 22:59 06:59 14:59 Intake Total 417 118 Balance 417 118 Intake: Oral 417 118 Other: Voiding Method Toilet Toilet # Voids 1 2 Weight 90.718 kg 89.5 kg Results - Lab Results Most recent lab results Calcium 8.7 mg/dL (8.4-10.2) 03/05/24 05:48 Magnesium 1.7 mg/dL (1.6-2.3) 03/04/24 13:57 03/05/24 05:48 03/05/24 05:48 Assessment and Plan Plan: Assessment: 1. Acute kidney injury secondary to hemodynamic ATN versus progression of under lying chronic kidney disease. Creatinine stable at 2.3. Kidney ultrasound showed no evidence of hydronephrosis. 2. 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 Creatinine 1.7 in December 2021. 3. Hypertension with chronic kidney disease. 4. Bradycardia. Heart rate currently stable. Coreg held. Cardiology consulted. Plan: Maintain IV fluids. Decrease rate to 50 cc an hour. Check UA. Follow-up echocardiogram. Avoid nephrotoxins. Advised patient to follow-up outpatient 1 week postdischarge to establish CKD care. Thank you for the consultation. I will continue to follow the patient with you during his hospital stay.
[2024-03-05] MEDS: amLODIPine 10 MG TAB PO SCH (11:38)
[2024-03-05] MEDS: hydrALAZINE HCL 25 MG TAB PO SCH (11:39)
--- NOTE | 2024-03-05 13:18 | P.CRDCN ---
History of Present Illness Consult date: 03/05/24 Reason for Consult (text): Bradycardia History of present illness: This is 73-year-old male does not follow with a fleecer. He has a past medical history of rheumatoid arthritis, hypertension, DVT, hypothyroidism, history of rectal cancer. We have been asked to evaluate the patient for bradycardia. Patient gives history that he has been having lightheaded episodes for the past several months. He states he has episodes where he is dizzy and is not able to catch his breath. He denies actual syncopal episodes. He states the episode yesterday was worse than previous ones. Patient also has chronic kidney disease which seems to have significantly worsened since 2021. He denies any difficulty with urination. He has been scheduled for an appointment with nephrology which is 3 months away. Blood pressure 136/62, heart rate 60s, pulse ox 99% on room air. He does not know the underlying cause of the renal failure but he is questioning his monthly Orencia infusions for RA as culprit. Regarding blood pressure, patient did noticed that blood pressures were going up and down throughout the day. Multiple medication changes were made yesterday. -EKG: Sinus bradycardia 45 bpm -Chest x-ray: No acute process -Renal ultrasound reveals bilateral chronic medical renal disease. No hydronephrosis. Multiple left-sided renal cortical cysts. -Laboratory studies: WBC 6.5, hemoglobin 11, potassium 3.9, BUN 22 creatinine 2.3. Troponins negative x 3. proBNP 632. TSH 1.12 with normal free T4 and free T3. -Home cardiac medications: Amlodipine 5 mg at bedtime, Coreg 25 mg twice daily, Crestor 20 mg at bedtime, patient is also on levothyroxine. Patient is also on Orencia and Plaquenil for RA. Review Of Systems: At the time of my exam: CONSTITUTIONAL: Denies fever or chills. HEENT: Denies blurred vision, vision changes, or eye pain. Denies hemoptysis CARDIOVASCULAR: Denies chest pain. Denies orthopnea. Denies PND. Denies palpitations RESPIRATORY: Denies shortness of breath. GASTROINTESTINAL: Denies abdominal pain. Denies nausea or vomiting. HEMATOLOGIC: Denies bleeding disorders. GENITOURINARY: Denies any blood in urine. SKIN: Denies puritis. Denies rash. Physical examination: Gen: This is a 73-year-old male in no acute distress VS: reviewed HEENT: Head is atraumatic, normocephalic. Pupils equal, round. Sclerae is anicteric. NECK: Supple. No JVD. LUNGS: Clear to auscultation. No wheezes or rhonchi. No intercostal retractions. HEART: Regular rate and rhythm. No murmur. ABDOMEN: Soft No tenderness. EXTREMITIES: No pedal edema. No calf tenderness. NEUROLOGICAL: Patient is awake, alert and oriented x3. Assessment: Bradycardia Hypertension Chronic kidney disease 3B Possible acute kidney injury Rheumatoid arthritis Hypothyroidism History of rectal cancer Plan: Resume patient's home cardiac medications with the following changes: Hold Coreg Increase amlodipine to 10 mg daily and start this morning Add hydralazine 25 mg 3 times daily Discontinue IV fluids Obtain A1c and lipid panel Obtain 2-D echocardiogram and Doppler study to assess cardiac structure and function Further recommendations to follow based upon clinical course Thank you kindly for this consultation. Nurse practitioner note has been reviewed, I agree with documented findings and plan of care. Patient was seen and examined. Past Medical History Past Medical History: Cancer, Deep Vein Thrombosis (DVT), Hypertension, Rheumatoid Arthritis (RA), Thyroid Disorder Additional Past Medical History / Comment(s): HX RECTAL CANCER WITH SURGERY, CHEMO & RADIATION [place] (2008), HX OF DVT'S .,BELCHING/GAS., TINNITUS, BACK PAIN History of Any Multi-Drug Resistant Organisms: None Reported Past Surgical History: Bowel Resection, Hernia Repair, Orthopedic Surgery Additional Past Surgical History / Comment(s): 3 HERNIA'S YON INGUINAL AND STOMACH., YON ELBOW SURGERY, LEFT SHOULDER, BOWEL RESECTION/COLOSTOMY AND THEN REVERSED. Past Anesthesia/Blood Transfusion Reactions: No Reported Reaction, Motion Sickness Past Psychological History: No Psychological Hx Reported Smoking Status: Former smoker Past Alcohol Use History: Rare Additional Past Alcohol Use History / Comment(s): QUIT SMOKING 15 YRS AGO, HX OF 2PPD., STARTED SMOKING TEENAGER. Past Drug Use History: None Reported - Past Family History Mother Family Medical History: Myocardial Infarction ([place]) Father Family Medical History: Unable to Obtain Medications and Allergies Home Medications Medication Instructions Recorded Confirmed Type Hydroxychloroquine Sulfate 200 mg PO BID 01/15/22 03/04/24 History [Plaquenil] Loperamide [Imodium] 2 mg PO TID PRN 12/09/22 01/26/25 History amLODIPine [Norvasc] 5 mg PO HS 01/15/22 03/04/24 History carvediloL [Coreg] 25 mg PO BID 01/15/22 03/04/24 History Nortriptyline [Pamelor] 25 mg PO HS #30 capsule 03/21/23 03/04/24 Rx Levothyroxine Sodium [Synthroid] 25 mcg PO DIRECTED 03/04/24 03/05/24 History Rosuvastatin [Crestor] 20 mg PO HS 03/04/24 03/04/24 History Abatacept [Orencia] 750 mg IV Q28D 03/05/24 03/05/24 History Allergies Allergy/AdvReac Type Severity Reaction Status Date / Time No Known Allergies Allergy Verified 03/04/24 14:56 Physical Exam Vitals: Vital Signs Temp Pulse Pulse Pulse Pulse Pulse Resp 03/05/24 08:00 18 03/05/24 07:59 97.9 F 68 18 03/05/24 03:38 98.0 F 69 18 03/05/24 01:35 76 71 76 70 18 03/04/24 23:39 98.0 F 70 18 03/04/24 19:44 76 71 76 68 20 03/04/24 19:43 71 20 03/04/24 19:42 98.1 F 68 20 03/04/24 17:26 79 74 74 03/04/24 17:09 76 03/04/24 16:54 98.1 F 76 20 03/04/24 16:11 98.5 F 73 17 03/04/24 13:14 97.8 F 55 L 16 BP BP BP BP BP Pulse Ox 03/05/24 08:00 03/05/24 07:59 136/62 99 03/05/24 03:38 126/67 99 03/05/24 01:35 03/04/24 23:39 130/61 99 03/04/24 19:44 154/66 98 03/04/24 19:43 153/69 100 03/04/24 19:42 158/72 98 03/04/24 17:26 143/79 123/76 149/76 03/04/24 17:09 03/04/24 16:54 145/68 100 03/04/24 16:11 138/68 99 03/04/24 13:14 126/61 98 Intake and Output 03/04/24 03/05/24 03/05/24 22:59 06:59 14:59 Intake Total 417 118 Balance 417 118 Intake: Oral 417 118 Other: Voiding Method Toilet Toilet # Voids 1 2 Weight 90.718 kg 89.5 kg Results 03/05/24 05:48 03/05/24 05:48 Cardiac Enzymes 03/04/24 03/04/24 03/04/24 Range/Units 13:57 13:57 17:01 AST 20 (17-59) U/L Troponin I <0.012 0.012 (0.000-0.034) ng/mL 03/04/24 Range/Units 20:11 AST (17-59) U/L Troponin I 0.012 (0.000-0.034) ng/mL Coagulation 03/04/24 Range/Units 13:57 PT 11.3 (10.0-12.5) sec APTT 22.9 (22.0-30.0) sec CBC 03/04/24 03/05/24 Range/Units 13:57 05:48 WBC 7.7 6.5 (3.8-10.6) k/uL RBC 3.59 L 3.52 L (4.30-5.90) m/uL Hgb 11.5 L 11.0 L (13.0-17.5) gm/dL Hct 34.2 L 33.8 L (39.0-53.0) % Plt Count 180 169 (150-450) k/uL Comprehensive Metabolic Panel 03/04/24 03/05/24 Range/Units 13:57 05:48 Sodium 137 138 (137-145) mmol/L Potassium 4.5 3.9 (3.5-5.1) mmol/L Chloride 108 H 111 H (98-107) mmol/L Carbon Dioxide 16 L 19 L (22-30) mmol/L BUN 26 H 22 H (9-20) mg/dL Creatinine 2.33 H 2.30 H (0.66-1.25) mg/dL Glucose 112 H 106 H (74-99) mg/dL Calcium 8.9 8.7 (8.4-10.2) mg/dL AST 20 (17-59) U/L ALT 17 (4-49) U/L Alkaline Phosphatase 99 (38-126) U/L Total Protein 5.3 L (6.3-8.2) g/dL Albumin 3.3 L (3.5-5.0) g/dL Current Medications Generic Name Dose Route Start Last Admin Trade Name Freq PRN Reason Stop Dose Admin Amlodipine Besylate 10 mg 03/05/24 09:45 Amlodipine 10 Mg Tab PO DAILY BRITTANY Atorvastatin Calcium 40 mg 03/04/24 21:00 03/04/24 20:54 Atorvastatin 40 Mg Tab PO 40 mg HS BRITTANY Administration Heparin Sodium (Porcine) 5,000 unit 03/04/24 21:00 03/05/24 08:01 Heparin Sodium,Porcine 5,000 Unit/Ml 1 Ml Vial SQ Not Given Q12HR BRITTANY Hydralazine HCl 25 mg 03/05/24 09:45 Hydralazine Hcl 25 Mg Tab PO TID BRITTANY Hydroxychloroquine Sulfate 200 mg 03/04/24 21:00 03/05/24 08:00 Hydroxychloroquine Sulfate 200 Mg Tab PO 200 mg BID BRITTANY Administration Levothyroxine Sodium 25 mcg 03/05/24 06:30 03/05/24 05:37 Levothyroxine 25 Mcg Tab PO 25 mcg 0630 BRITTANY Administration Loperamide HCl 2 mg 03/04/24 15:06 Loperamide 2 Mg Cap PO TID PRN Diarrhea Meclizine HCl 12.5 mg 03/04/24 16:01 03/05/24 08:01 Meclizine 12.5 Mg Tab PO 12.5 mg BID BRITTANY Administration Naloxone HCl 0.2 mg 03/04/24 15:04 Naloxone 0.4 Mg/Ml 1 Ml Vial IV Q2M PRN Opioid Reversal Nortriptyline HCl 25 mg 03/04/24 21:00 03/04/24 20:54 Nortriptyline 25 Mg Cap PO 25 mg HS BRITTANY Administration Intake and Output 03/04/24 03/05/24 03/05/24 22:59 06:59 14:59 Intake Total 417 118 Balance 417 118 Intake: Oral 417 118 Other: Voiding Method Toilet Toilet # Voids 1 2 Weight 90.718 kg 89.5 kg 03/05/24 05:48 03/05/24 05:48
[2024-03-05 15:44] LABS: Appearance,Urine Clear (Clear); Bilirubin,Urine Negative (Negative); Blood,Urine Negative (Negative); Color,Urine Colorless; Glucose,Urine (UA) Negative (Negative); Ketones,Urine Negative (Negative); Leukocyte Esterase,Urine Negative (Negative); Nitrite,Urine Negative (Negative); Protein,Urine Negative (Negative); Specific Gravity,Urine 1.009 (1.001-1.035); Urobilinogen,Urine <2.0 mg/dL (<2.0)
--- NOTE | 2024-03-05 17:39 | CA ---
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 LV Systolic Volume MOD 4C 55.6 cm??? LV Ejection Fraction MOD 4C 55.4 % LV Cardiac Index MOD 4C 2682.9 cm???/min???m??? LV Diastolic Length 4C 8.4 cm LV Systolic Length 4C 7.3 cm LV Diastolic Volume MOD 2C 127.3 cm??? LV Systolic Volume MOD 2C 64.0 cm??? LV Ejection Fraction MOD 2C 49.7 % LV Cardiac Index MOD 2C 2461.9 cm???/min???m??? LV Diastolic Length 2C 8.8 cm LV Systolic Length 2C 7.1 cm LA Volume 71.8 cm??? 18 - 58 / 22 - 52 cm??? LA Volume Index 34.1 cm???/m??? 16 - 28 cm???/m??? M-MODE Aortic Root Diameter MM 3.8 cm DOPPLER AV Peak Velocity 145.1 cm/s AV Peak Gradient 8.4 mmHg AI Peak Velocity 398.5 cm/s AI Peak Gradient 63.5 mmHg AI Pressure Half Time 482.7 ms MV Area PHT 3.8 cm??? Mitral E Point Velocity 105.9 cm/s Mitral A Point Velocity 115.1 cm/s Mitral E to A Ratio 0.9 MV Deceleration Time 200.5 ms TR Peak Velocity 230.2 cm/s TR Peak Gradient 21.2 mmHg Right Ventricular Systolic Press 26.2 mmHg FINDINGS Left Ventricle Left ventricular ejection fraction is estimated at 55-60 %. Left ventricular cavity size normal. Mildly increased septal wall thickness. Normal left ventricular wall motion. Right Ventricle Moderate right ventricular dilatation. Normal right ventricular size and function. Right Atrium Normal right atrial size. No right atrial thrombus or mass seen. Left Atrium Mildly increased left atrial diameter. Moderately increased left atrial volume. Mildly increased left atrial area. No left atrial thrombus or mass present. Mitral Valve Structurally normal mitral valve. Trace to mild mitral regurgitation. Aortic Valve Trileaflet aortic valve. Aortic valve sclerosis. Mild aortic regurgitation. Tricuspid Valve Structurally normal tricuspid valve. Mild tricuspid regurgitation. Pulmonic Valve Structurally normal pulmonic valve. Mild pulmonic regurgitation. Pericardium No pericardial effusion. Aorta Mild aortic dilatation at the level of the sinuses of valsalva 38 mm CONCLUSIONS Normal LV size and systolic function. Moderate enlargement of right ventricle. Mild mitral tricuspid and aortic insufficiency. No pericardial effusion. No significant pulmonary hypertension Previewed by: Dr. Mily Aguillon MD (Electronically Signed) Final Date: 05 March 2024 17:37
--- NOTE | 2024-03-06 04:15 | PN ---
PROGRESS NOTE DATE OF SERVICE: 03/05/2024 SUBJECTIVE: This is a 73-year-old gentleman, who was admitted with sinus bradycardia as well as lightheadedness as well as renal failure. No chest pain. No palpitations. No fever. Cardiology adjusted the medications. OBJECTIVE: VITAL SIGNS: Pulse 70, blood pressure 130/64, respirations 16. CHEST: Clear to auscultation. CARDIOVASCULAR: S1, S2. ABDOMEN: Soft. NERVOUS SYSTEM: Nonfocal. LABORATORY DATA: Creatinine is 2.3. ASSESSMENT: 1. Lightheadedness, weakness, possibly acute on chronic renal failure. 2. Severe bradycardia, symptomatic. 3. Chest pain for evaluation. 4. Myocardial infarction ruled out. 5. History of deep venous thrombosis. 6. Hypertension. 7. History of rheumatoid arthritis. RECOMMENDATIONS: Recommend to continue current medications and continue symptomatic treatment. D-dimer is negative. Repeat labs. Closely follow with Cardiology, Nephrology. Continue with cautious IV fluids. Further recommendations to follow. MMODL / IJN: [id number] /
[2024-03-06 07:24] LABS: Basophils # (A) 0.1 k/uL (0-0.2); Basophils % (A) 1 %; Eosinophils # (A) 0.6 k/uL (0-0.7); Eosinophils % (A) 9 %; HCT 34.1 % (39.0-53.0); HGB 10.9 gm/dL (13.0-17.5); Lymphocytes # (A) 1.8 k/uL (1.0-4.8); Lymphocytes % (A) 26 %; MCH 30.8 pg (25.0-35.0); MCHC 32.1 g/dL (31.0-37.0); MCV 96.1 fL (80.0-100.0); Monocytes # (A) 0.5 k/uL (0-1.0); Monocytes % (A) 8 %; Neutrophils # (A) 3.6 k/uL (1.3-7.7); Neutrophils % (A) 54 %; Platelet Count 188 k/uL (150-450); RBC 3.55 m/uL (4.30-5.90); WBC 6.7 k/uL (3.8-10.6)
[2024-03-06 07:38] LABS: African American GFR (CKD) 33 (>60 ml/min/1.73 sqM); Anion Gap 8 mmol/L; Blood Urea Nitrogen 23 mg/dL (9-20); Calcium 8.9 mg/dL (8.4-10.2); Carbon Dioxide 19 mmol/L (22-30); Chloride 112 mmol/L (98-107); Glucose 86 mg/dL (74-99); Magnesium 1.8 mg/dL (1.6-2.3); Non-African American GFR(CKD) 29 (>60 ml/min/1.73 sqM); Potassium 4.3 mmol/L (3.5-5.1); Sodium 139 mmol/L (137-145)
[2024-03-06] MEDS: hydrALAZINE HCL 50 MG TAB PO SCH (08:56)
--- NOTE | 2024-03-06 10:08 | P.PN ---
Subjective Patient is seen in follow-up for acute kidney injury on chronic kidney disease. Renal function little better. Oral intake is good. Off IV fluids. Vital signs are stable. General: No acute distress. HEENT: Head exam is unremarkable. Lungs: No audible rhonchi or wheezes. HEART: Rate and Rhythm are regular. ABDOMEN: Nontender. EXTREMITITES: No edema. Objective - Vital Signs Vital signs: Vital Signs Temp 98.3 F 03/06/24 04:10 Pulse 68 03/06/24 08:00 Resp 16 03/06/24 08:00 BP 154/73 03/06/24 08:00 Pulse Ox 99 03/06/24 08:00 FiO2 Intake & Output 03/05/24 03/06/24 03/06/24 18:59 06:59 18:59 Intake Total 236 Balance 236 Weight 88.9 kg Intake: Oral 236 Other: Voiding Method Toilet Toilet # Voids 3 - Labs CBC & Chem 7: 03/06/24 06:25 03/06/24 06:25 Labs: Abnormal Lab Results - Last 24 Hours (Table) 03/06/24 03/06/24 Range/Units 06:25 06:25 RBC 3.55 L (4.30-5.90) m/uL Hgb 10.9 L (13.0-17.5) gm/dL Hct 34.1 L (39.0-53.0) % Chloride 112 H (98-107) mmol/L Carbon Dioxide 19 L (22-30) mmol/L BUN 23 H (9-20) mg/dL Creatinine 2.19 H (0.66-1.25) mg/dL Assessment and Plan Plan: Assessment: 1. Acute kidney injury secondary to hemodynamic ATN versus progression of underlying chronic kidney disease. Creatinine stable at 2.19. Kidney ultrasound showed no evidence of hydronephrosis. UA benign. 2. 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 Creatinine 1.7 in December 2021. 3. Hypertension with chronic kidney disease. 4. Bradycardia. Heart rate currently stable. Coreg discontinued. Cardiology following. 5. Metabolic acidosis secondary to acute kidney injury and IV fluids. Plan: IV fluids discontinued. Avoid nephrotoxins. Advised patient to follow-up outpatient 1 week postdischarge to establish CKD care. Preserved EF noted on echocardiogram. Add oral bicarb. Okay to add losartan from nephrology standpoint. Discussed with cardiology.
[2024-03-06] MEDS: SODIUM BICARBONATE TAB 650 MG TAB PO SCH (11:58)
--- NOTE | 2024-03-06 14:11 | P.PN ---
Subjective Progress Note Date: 03/06/24 Reason for Consult (text): Bradycardia History of present illness: This is 73-year-old male does not follow with a medical lead. He has a past medical history of rheumatoid arthritis, hypertension, DVT, hypothyroidism, history of rectal cancer. We have been asked to evaluate the patient for bradycardia. Patient gives history that he has been having lightheaded episodes for the past several months. He states he has episodes where he is dizzy and is not able to catch his breath. He denies actual syncopal episodes. He states the episode yesterday was worse than previous ones. Patient also has chronic kidney disease which seems to have significantly worsened since 2021. He denies any difficulty with urination. He has been scheduled for an appointment with nephrology which is 3 months away. Blood pressure 136/62, heart rate 60s, pulse ox 99% on room air. He does not know the underlying cause of the renal failure but he is questioning his monthly Orencia infusions for RA as culprit. Regarding blood pressure, patient did noticed that blood pressures were going up and down throughout the day. Multiple medication changes were made yesterday. -EKG: Sinus bradycardia 45 bpm -Chest x-ray: No acute process -Renal ultrasound reveals bilateral chronic medical renal disease. No hydronephrosis. Multiple left-sided renal cortical cysts. -Laboratory studies: WBC 6.5, hemoglobin 11, potassium 3.9, BUN 22 creatinine 2.3. Troponins negative x 3. proBNP 632. TSH 1.12 with normal free T4 and free T3. -Home cardiac medications: Amlodipine 5 mg at bedtime, Coreg 25 mg twice daily, Crestor 20 mg at bedtime, patient is also on levothyroxine. Patient is also on Orencia and Plaquenil for RA. 03/06 Patient seen and examined. Yesterday, Coreg was placed on hold and we increased amlodipine and added hydralazine for blood pressure control. IV fluids were discontinued. Bradycardia is improved today and heart rate is running in the 60 s and 70s. Blood pressure 148/70 and pulse ox 98% on room air. Repeat blood work reveals hemoglobin 10.9, BUN 23 creatinine 2.19. Hemoglobin A1c 5.5. Echocardiogram reveals normal LV size and systolic function. Moderate enlargement of the right ventricle. Mild mitral, tricuspid and aortic insuf ficiency. No pericardial effusion. No significant pulmonary hypertension. Physical examination: Gen: This is a 73-year-old male in no acute distress VS: reviewed HEENT: Head is atraumatic, normocephalic. Pupils equal, round. Sclerae is anicteric. NECK: Supple. No JVD. LUNGS: Clear to auscultation. No wheezes or rhonchi. No intercostal retractions. HEART: Regular rate and rhythm. No murmur. ABDOMEN: Soft No tenderness. EXTREMITIES: No pedal edema. No calf tenderness. NEUROLOGICAL: Patient is awake, alert and oriented x3. Assessment: Bradycardia improved after Coreg discontinued Hypertension Chronic kidney disease 3B Possible acute kidney injury Rheumatoid arthritis Hypothyroidism History of rectal cancer Plan: Continue patient's home cardiac medications with the following changes: Hold Coreg Continue amlodipine 10 mg daily Continue hydralazine and increase to 50 mg 3 times daily May consider adding valsartan 80 mg daily tomorrow depending on blood pressure readings. Obtain lipid panel Further recommendations to follow based upon clinical course Nurse practitioner note has been reviewed, I agree with documented findings and plan of care. Patient was seen and examined. Objective - Vital Signs Vital signs: Vital Signs Temp 98.3 F 03/06/24 04:10 Pulse 68 03/06/24 04:10 Resp 16 03/06/24 04:10 BP 148/70 03/06/24 04:10 Pulse Ox 98 03/06/24 04:10 FiO2 Intake & Output 03/05/24 03/06/24 03/06/24 18:59 06:59 18:59 Intake Total 236 Balance 236 Weight 88.9 kg Intake: Oral 236 Other: Voiding Method Toilet # Voids 3 - Labs CBC & Chem 7: 03/06/24 06:25 03/06/24 06:25 Labs: Abnormal Lab Results - Last 24 Hours (Table) 03/06/24 03/06/24 Range/Units 06:25 06:25 RBC 3.55 L (4.30-5.90) m/uL Hgb 10.9 L (13.0-17.5) gm/dL Hct 34.1 L (39.0-53.0) % Chloride 112 H (98-107) mmol/L Carbon Dioxide 19 L (22-30) mmol/L BUN 23 H (9-20) mg/dL Creatinine 2.19 H (0.66-1.25) mg/dL
[2024-03-06 15:38] LABS: Chol/HDL Ratio 2.03 Ratio; LDL Cholesterol,Calculated 22.5 mg/dL (0.0-131.0); VLDL Calculation 15.98 mg/dL (5.00-40.00)
[2024-03-06 20:58] VITALS: TEMP 97.9
--- NOTE | 2024-03-07 03:27 | PN ---
PROGRESS NOTE DATE OF SERVICE: 03/06/2024 SUBJECTIVE: This is a 73-year-old gentleman, who was admitted with lightheadedness and weakness, acute renal failure. The patient also had significant bradycardia. Cardiology adjusted the medications. No chest pain. No palpitation. OBJECTIVE: VITAL SIGNS: Pulse 68, blood pressure 150/73, respirations 16. HEENT: Conjunctivae normal. CARDIOVASCULAR: S1, S2. RESPIRATIONS: Breath sounds diminished at the bases. ABDOMEN: Soft. LABORATORY DATA: Creatinine 2.1 and slightly improving. ASSESSMENT: 1. Lightheadedness, weakness, possible acute on chronic renal failure. 2. Severe bradycardia, symptomatic. 3. Chest pain for evaluation. 4. Myocardial infarction ruled out. 5. History of deep venous thrombosis. 6. Hypertension. 7. History of rheumatoid arthritis. RECOMMENDATIONS: Recommend to continue current management and continue symptomatic treatment. Monitor closely. Closely follow with Cardiology. Adjust medications. IV fluids. Repeat labs tomorrow. Sodium bicarb p.o. has been initiated. Further recommendations to follow. MMODL / IJN: [id number] /
[2024-03-07 04:47] VITALS: RESP 18
[2024-03-07 07:00] LABS: Basophils # (A) 0.1 k/uL (0-0.2); Basophils % (A) 1 %; Eosinophils # (A) 0.5 k/uL (0-0.7); Eosinophils % (A) 6 %; HCT 39.3 % (39.0-53.0); HGB 12.8 gm/dL (13.0-17.5); Lymphocytes # (A) 1.8 k/uL (1.0-4.8); Lymphocytes % (A) 23 %; MCH 31.2 pg (25.0-35.0); MCHC 32.4 g/dL (31.0-37.0); MCV 96.1 fL (80.0-100.0); Mean Platelet Volume 7.8; Monocytes # (A) 0.7 k/uL (0-1.0); Monocytes % (A) 9 %; Neutrophils # (A) 4.7 k/uL (1.3-7.7); Neutrophils % (A) 59 %; Platelet Count 242 k/uL (150-450); RBC 4.09 m/uL (4.30-5.90); RDW 14.1 % (11.5-15.5)
[2024-03-07 07:25] LABS: African American GFR (CKD) 31 (>60 ml/min/1.73 sqM); Anion Gap 12 mmol/L; Blood Urea Nitrogen 25 mg/dL (9-20); Calcium 9.8 mg/dL (8.4-10.2); Carbon Dioxide 19 mmol/L (22-30); Chloride 108 mmol/L (98-107); Glucose 91 mg/dL (74-99); Non-African American GFR(CKD) 27 (>60 ml/min/1.73 sqM); Potassium 4.4 mmol/L (3.5-5.1); Sodium 139 mmol/L (137-145)
[2024-03-07 10:39] VITALS: BP 147/56; PULSE 80
--- NOTE | 2024-03-07 10:42 | P.PN ---
Subjective Patient is seen in follow-up for acute kidney injury on chronic kidney disease. Renal function fairly stable. Oral intake is good. Off IV fluids. No active complaints. Vital signs are stable. General: No acute distress. HEENT: Head exam is unremarkable. Lungs: No audible rhonchi or wheezes. HEART: Rate and Rhythm are regular. ABDOMEN: Nontender. EXTREMITITES: No edema. Objective - Vital Signs Vital signs: Vital Signs Temp 97.9 F 03/07/24 09:25 Pulse 80 03/07/24 09:25 Resp 18 03/07/24 09:25 BP 147/56 03/07/24 09:25 Pulse Ox 96 03/07/24 09:25 FiO2 Intake & Output 03/06/24 03/07/24 03/07/24 18:59 06:59 18:59 Intake Total 118 Balance 118 Weight 88.1 kg Intake: Oral 118 Other: Voiding Method Toilet Toilet Toilet # Voids 3 1 # Bowel Movements 1 - Labs CBC & Chem 7: 03/07/24 06:00 03/07/24 06:00 Labs: Abnormal Lab Results - Last 24 Hours (Table) 03/06/24 03/07/24 03/07/24 Range/Units 06:25 06:00 06:00 RBC 4.09 L (4.30-5.90) m/uL Hgb 12.8 L (13.0-17.5) gm/dL Chloride 108 H (98-107) mmol/L Carbon Dioxide 19 L (22-30) mmol/L BUN 25 H (9-20) mg/dL Creatinine 2.32 H (0.66-1.25) mg/dL HDL Cholesterol 37.50 L (40.00-60.00) mg/dL Assessment and Plan Plan: Assessment: 1. Acute kidney injury secondary to hemodynamic ATN versus progression of underlying chronic kidney disease. Creatinine stable at 2.19. Kidney ultrasound showed no evidence of hydronephrosis. UA benign. 2. 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 Creatinine 1.7 in December 2021. 3. Hypertension with chronic kidney disease. 4. Bradycardia. Heart rate currently stable. Coreg discontinued. Cardiology following. 5. Metabolic acidosis secondary to acute kidney injury and IV fluids. On oral bicarb. Plan: Avoid nephrotoxins. Advised patient to follow-up outpatient 1 week postdischarge to establish CKD care. Preserved EF noted on echocardiogram. Add low-dose losartan. Repeat BMP and magnesium level 2 to 3 days postdischarge.
[2024-03-07] MEDS: LOSARTAN 25 MG TAB PO SCH (12:41)
--- NOTE | 2024-03-07 12:51 | P.PN ---
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 He has a past medical history of rheumatoid arthritis, hypertension, DVT, hypothyroidism, history of rectal cancer. We have been asked to evaluate the patient for bradycardia. Patient gives history that he has been having lightheaded episodes for the past several months. He states he has episodes where he is dizzy and is not able to catch his breath. He denies actual syncopal episodes. He states the episode yesterday was worse than previous ones. Patient also has chronic kidney disease which seems to have significantly worsened since 2021. He denies any difficulty with urination. He has been scheduled for an appointment with nephrology which is 3 months away. Blood pressure 136/62, heart rate 60s, pulse ox 99% on room air. He does not know the underlying cause of the renal failure but he is questioning his monthly Orencia infusions for RA as culprit. Regarding blood pressure, patient did noticed that blood pressures were going up and down throughout the day. Multiple medication changes were made yesterday. -EKG: Sinus bradycardia 45 bpm -Chest x-ray: No acute process -Renal ultrasound reveals bilateral chronic medical renal disease. No hydronephrosis. Multiple left-sided renal cortical cysts. -Laboratory studies: WBC 6.5, hemoglobin 11, potassium 3.9, BUN 22 creatinine 2.3. Troponins negative x 3. proBNP 632. TSH 1.12 with normal free T4 and free T3. -Home cardiac medications: Amlodipine 5 mg at bedtime, Coreg 25 mg twice daily, Crestor 20 mg at bedtime, patient is also on levothyroxine. Patient is also on Orencia and Plaquenil for RA. 03/06 Patient seen and examined. Yesterday, Coreg was placed on hold and we increased amlodipine and added hydralazine for blood pressure control. IV fluids were discontinued. Bradycardia is improved today and heart rate is running in the 60 s and 70s. Blood pressure 148/70 and pulse ox 98% on room air. Repeat blood work reveals hemoglobin 10.9, BUN 23 creatinine 2.19. Hemoglobin A1c 5.5. Echocardiogram reveals normal LV size and systolic function. Moderate enlargement of the right ventricle. Mild mitral, tricuspid and aortic insuf ficiency. No pericardial effusion. No significant pulmonary hypertension. 03/07 Patient has been feeling well. He has been ambulating in the hallway without any difficulty. No chest pain, no lightheadedness or dizziness. Yesterday we had increased hydralazine to 50 mg 3 times daily and this morning, nephrology has added and losartan but patient has not received a dose. Blood pressure readings remain slightly elevated 147/56, heart rate 80, pulse ox 96% on room air. Repeat blood work reveals hemoglobin 12.8, BUN 25 creatinine 2.32. Physical examination: Gen: This is a 73-year-old male in no acute distress VS: reviewed HEENT: Head is atraumatic, normocephalic. Pupils equal, round. Sclerae is anicteric. NECK: Supple. No JVD. LUNGS: Clear to auscultation. No wheezes or rhonchi. No intercostal retractions. HEART: Regular rate and rhythm. No murmur. ABDOMEN: Soft No tenderness. EXTREMITIES: No pedal edema. No calf tenderness. NEUROLOGICAL: Patient is awake, alert and oriented x3. Assessment: Bradycardia improved after Coreg discontinued Hypertension Chronic kidney disease 3B Possible acute kidney injury Rheumatoid arthritis Hypothyroidism History of rectal cancer Plan: Continue patient's home cardiac medications with the following changes: Hold Coreg Continue amlodipine 10 mg daily Continue hydralazine 50 mg 3 times daily Continue losartan started by nephrology Patient is cleared for discharge from cardiology and may follow-up with Dr. Mooney in 2 weeks in the office. Prescriptions for his new cardiac medications have been sent to his pharmacy. Nurse practitioner note has been reviewed, I agree with documented findings and plan of care. Patient was seen and examined. Objective - Vital Signs Vital signs: Vital Signs Temp 97.9 F 03/07/24 09:25 Pulse 80 03/07/24 09:25 Resp 18 03/07/24 09:25 BP 147/56 03/07/24 09:25 Pulse Ox 96 03/07/24 09:25 FiO2 Intake & Output 03/06/24 03/07/24 03/07/24 18:59 06:59 18:59 Intake Total 358 Balance 358 Weight 88.1 kg Intake: Oral 358 Other: Voiding Method Toilet Toilet Toilet # Voids 3 1 # Bowel Movements 1 - Labs CBC & Chem 7: 03/07/24 06:00 03/07/24 06:00 Labs: Abnormal Lab Results - Last 24 Hours (Table) 03/06/24 03/07/24 03/07/24 Range/Units 06:25 06:00 06:00 RBC 4.09 L (4.30-5.90) m/uL Hgb 12.8 L (13.0-17.5) gm/dL Chloride 108 H (98-107) mmol/L Carbon Dioxide 19 L (22-30) mmol/L BUN 25 H (9-20) mg/dL Creatinine 2.32 H (0.66-1.25) mg/dL HDL Cholesterol 37.50 L (40.00-60.00) mg/dL
[2024-03-07] MEDS ORDERED: hydrALAZINE HCL 50 MG TAB PO SCH ×2 (16:00)
--- NOTE | 2024-03-09 13:48 | CDI ---
Documentation Clarification Form Date: 03/09/2024 01:33:30 PM From: Betty Winkler Admit Date: 03/05/2024 02:56:00 PM Patient Name: Jamie Jacobson Visit Number: [id number] Discharge Date: 03/07/2024 03:20:00 PM ATTENTION: The Clinical Documentation Specialists (CDI) and [facility] Coding Staff appreciate your assistance in clarifying documentation. Please respond to the clarification below the line at the bottom and electronically sign. The CDI & [facility] Coding staff will review the response and follow-up if needed. Please note: Queries are made part of the Legal Health Record. If you have any questions, please contact the author of this message via ITS. Doctor/Provider: Tree Goodwin Conflicting documentation has been found in the medical record. As attending physician, please provide clarification whether acute kidney injury is valid, or has been ruled out. History and Physical 03/05/24 states patient is a 73 year old male, presented complaining of lightheadedness, dizziness, shortness of breath, and chest discomfort. Patient was found to have a heart rate of 45 and had worsening renal failure. Assessment: lightheadedness and weakness, possible acute on chronic renal failure, and severe bradycardia, symptomatic. Nephrology consult note 03/05/24 Assessment: acute kidney injury secondary to hemodynamic ATN versus progression of underlying chronic kidney disease. Creatinine stable at 2.3. Chronic kidney disease stage IIIB secondary to nephrosclerosis. Creatinine 1.7 in December 2021. Progress note 03/07/24 states possible acute kidney injury History/Risk Factors: patient has a history of DVT, HTN, rheumatoid arthritis, thyroid disease, and CKD 3B. Clinical Indicators: patient has lightheadedness, dizziness, weakness. BUN: 26 CREAT: 2.33 Treatment: patients coreg was stopped. Amlodipine was increased to 10mg daily, added hydralazine 25 mg 3X/Day, maintain IV fluids. nephrology and cardiology consults were obtained. Please clarify which diagnosis is most appropriate: [x ] Acute Kidney Injury secondary to hemodynamic ATN is confirmed [ ] Acute Kidney Injury is confirmed [ ] Acute Kidney Injury is ruled out [ ] Other (please specify) [ ] Unable to determine MTDD
--- NOTE | 2024-03-10 23:20 | P.DS ---
Providers Date of admission: 03/05/24 14:56 Expected date of discharge: 03/07/24 Attending physician: Tree Goodwin Consults: 03/04/24 15:04 Consult Physician Routine Consulting Provider: Marv Sharma Consult Reason/Comments: renal insufficency Do you want consulting provider notified?: Yes Consult Physician Routine Consulting Provider: Quang Ferrer Consult Reason/Comments: bradycardia Do you want consulting provider notified?: Yes Primary care physician: Chau Santizo Hospital Course: Final diagnosis Acute kidney injury secondary to hemodynamic ATN Lightheadedness, weakness, likely secondary to acute on chronic renal failure Severe bradycardia, symptomatic Chest pain, ruled out ACS Myocardial infarction ruled out History of DVT Hypertension History of rheumatoid arthritis GI prophylaxis DVT prophylaxis Full code Discharge disposition Patient is being discharged in a stable condition with guarded prognosis to home. Patient will follow-up with Dr. Santizo in the outpatient setting upon discharge. Patient is to continue with current medications and outpatient follow-up with nephrology as scheduled. Total time taken is greater than 35 minutes. Hospital course This is a 73-year-old male who was recently admitted with acute on chronic kidney disease with acute kidney injury as well as chest pain for evaluation. Patient evaluated by cardiology as well as nephrology making adjustments to medications and also recommends outpatient follow-up to follow-up with labs as well as nephrology. Patient is stable and has been cleared for discharge. Please refer to consultation notes for further HPI. Currently no reports of chest pain, shortness of breath, or palpitations. Patient is afebrile. No reports of nausea or vomiting and patient is tolerating diet. Patient will be discharged home today. Guarded prognosis Physical exam: Gen: This is a 73-year-old male who is awake, alert and oriented x 3, well- developed, elderly appearing HEENT: Head is atraumatic, normocephalic. Pupils equal, round. Sclerae is anicteric. NECK: Supple. No JVD. No lymphadenopathy. No thyromegaly. LUNGS: Diminished breath sounds bilaterally otherwise clear to auscultation. No wheezes or rhonchi. No intercostal retractions. HEART: S1, S2 are muffled ABDOMEN: Soft. Obese. Bowel sounds are present. No masses. No tenderness. EXTREMITIES: No pedal edema. No calf tenderness. NEUROLOGICAL: Patient is awake, alert and oriented x3. Cranial nerves 2 through 12 are grossly intact. Please refer to medication reconciliation sheet for a list of medications. The impression and plan of care has been dictated by Ruchi Dickey, Nurse Practitioner as directed. Dr. Buddy MD I have performed a history and examination and MDM of this patient, discussed the same with the dictator, and agree with the dictator's assessment and plan as written ,documented as a scribe. Based on total visit time, I have performed more than 50% of the visit. Patient Condition at Discharge: Fair Plan - Discharge Summary Discharge Rx Participant: No New Discharge Prescriptions: New Losartan [Cozaar] 25 mg PO DAILY #90 tab Meclizine [Antivert] 12.5 mg PO BID #30 tab Sodium Bicarbonate Tab 650 mg PO BID #60 tab hydrALAZINE HCL [Apresoline] 50 mg PO TID #270 tab amLODIPine [Norvasc] 10 mg PO DAILY #90 tab Continue Nortriptyline [Pamelor] 25 mg PO HS #30 capsule Abatacept [Orencia] 750 mg IV Q28D Hydroxychloroquine Sulfate [Plaquenil] 200 mg PO BID Loperamide [Imodium] 2 mg PO TID PRN PRN Reason: Diarrhea Levothyroxine Sodium [Synthroid] 25 mcg PO DIRECTED Rosuvastatin [Crestor] 20 mg PO HS Discontinued carvediloL [Coreg] 25 mg PO BID amLODIPine [Norvasc] 5 mg PO HS Discharge Medication List Hydroxychloroquine Sulfate [Plaquenil] 200 mg PO BID 01/15/22 [History] Loperamide [Imodium] 2 mg PO TID PRN 01/15/22 [History] Nortriptyline [Pamelor] 25 mg PO HS #30 capsule 03/21/23 [Rx] Levothyroxine Sodium [Synthroid] 25 mcg PO DIRECTED 03/04/24 [History] Rosuvastatin [Crestor] 20 mg PO HS 03/04/24 [History] Abatacept [Orencia] 750 mg IV Q28D 03/05/24 [History] Losartan [Cozaar] 25 mg PO DAILY #90 tab 03/07/24 [Rx] Meclizine [Antivert] 12.5 mg PO BID #30 tab 03/07/24 [Rx] Sodium Bicarbonate Tab 650 mg PO BID #60 tab 03/07/24 [Rx] amLODIPine [Norvasc] 10 mg PO DAILY #90 tab 03/07/24 [Rx] hydrALAZINE HCL [Apresoline] 50 mg PO TID #270 tab 03/07/24 [Rx] Follow up Appointment(s)/Referral(s): Silas Mooney MD [STAFF PHYSICIAN] - 2 Weeks (Office to call with appointment date and time.) Chau Santizo MD [Primary Care Provider] - 03/12/24 2:40 pm Ambulatory/Diagnostic Orders: Basic Metabolic Panel [LAB.AMB] Time Frame: 3 Days, Location: None Selected Patient Instructions/Handouts: Bradycardia (DC) Activity/Diet/Wound Care/Special Instructions: Activity limited until follow-up Follow-up with primary care provider on discharge Follow-up with repeat labs to monitor kidney functions and electrolytes Continue taking medications as prescribed Continue monitoring blood pressure and keep a diary of readings for cardiology and primary follow-up Discharge Disposition: HOME SELF-CARE
== END 2024-03-07 15:20 | disposition home or self-care (01) | DRG 308 ==
LOC: EC 13:13 → 3SCARD 15:04 → OBSVTOIN 03-05 14:56
PROVIDERS: ADMIT Hospitalist; ATTEND Hospitalist
DX: R00.1 Bradycardia, unspecified (principal); N17.0 Acute kidney failure with tubular necrosis; E87.20 Acidosis, unspecified; I12.9 Hypertensive chronic kidney disease with stage 1 through stage 4 chronic kidney disease, or unspecified chronic kidney disease; E03.9 Hypothyroidism, unspecified; M06.9 Rheumatoid arthritis, unspecified; N18.32 Chronic kidney disease, stage 3b; N28.1 Cyst of kidney, acquired; T44.7X5A Adverse effect of beta-adrenoreceptor antagonists, initial encounter; Z85.048 Personal history of other malignant neoplasm of rectum, rectosigmoid junction, and anus; Z86.718 Personal history of other venous thrombosis and embolism; Z87.891 Personal history of nicotine dependence; Z79.899 Other long term (current) drug therapy; Z79.890 Hormone replacement therapy; Z92.21 Personal history of antineoplastic chemotherapy; Z92.3 Personal history of irradiation
CPT/HCPCS: 36415; 71046; 76770; 80048; 80053; 80061; 81003; 83036; 83735; 83880; 84439; 84443; 84481; 84484; 85025; 85379; 85610; 85730; 93005; 93306; 99285

== ENCOUNTER → 2024-06-01 | Outpatient (CLI) | payer MEDICARE, OTHER ==
[2024-06-01 15:16] LABS: Basophils # (A) 0.08 X 10*3/uL (0.00-0.10); Basophils % (A) 1.1 %; Eosinophils # (A) 0.22 X 10*3/uL (0.04-0.35); HCT 35.9 % (39.6-50.0); HGB 11.8 g/dL (13.0-17.0); Lymphocytes # (A) 1.54 X 10*3/uL (0.90-5.00); Lymphocytes % (A) 20.8 %; MCHC 32.9 g/dL (32.0-37.0); MCV 94.2 FL (80.0-97.0); Mean Platelet Volume 10.4 FL (9.5-12.2); Monocytes # (A) 0.76 X 10*3/uL (0.20-1.00); Monocytes % (A) 10.3 %; NRBC Per 100 WBC 0 X 10*3/uL (0.00-0.01); Neutrophils # (A) 4.79 X 10*3/uL (1.80-7.70); Neutrophils % (A) 64.7 %; Platelet Count 278 X 10*3/uL (140-440); RBC 3.81 X 10*6/uL (4.40-5.60); RDW 13.3 % (11.5-14.5)
[2024-06-01 15:57] LABS: ALT 15 U/L (10-49); AST 17 U/L (14-35); Albumin 4.3 g/dL (3.8-4.9); Albumin/Globulin Ratio 2.26 Ratio (1.60-3.17); Alkaline Phosphatase 128 U/L (41-126); BUN/Creat Ratio 11.93 Ratio (12.00-20.00); Blood Urea Nitrogen 34.6 mg/dL (9.0-27.0); Calcium 9.3 mg/dL (8.7-10.3); Carbon Dioxide 15.5 mmol/L (21.6-31.8); Chloride 107 mmol/L (96-109); Globulin 1.9 g/dL (1.6-3.3); Glucose 115 mg/dL (70-110); Iron 64 UG/DL (65-175); Magnesium 1.9 mg/dL (1.5-2.4); Phosphorus 3.2 mg/dL (2.4-5.1); Potassium 4.1 mmol/L (3.5-5.5); Sodium 139 mmol/L (135-145); Total Bilirubin 0.2 mg/dL (0.3-1.2); Total Iron Binding Capacity 287 UG/DL (228-460); Total Protein 6.2 g/dL (6.2-8.2); Uric Acid 6.6 mg/dL (3.7-8.7)
[2024-06-01 16:44] LABS: Appearance,Urine Clear (Clear); Bilirubin,Urine Negative (Negative); Blood,Urine Negative (Negative); Color,Urine Yellow (Yellow); Ketones,Urine Negative (Negative); Nitrite,Urine Negative (Negative); PH, Urine 5.5; Specific Gravity,Urine 1.015 (1.001-1.030); Urobilinogen,Urine 0.2 E.U./DL
== END | disposition home or self-care (01) ==
LOC: LABWHC1 10:59
PROVIDERS: ATTEND Nurse Practitioner Family
DX: E55.9 Vitamin D deficiency, unspecified (principal); D63.1 Anemia in chronic kidney disease; N18.32 Chronic kidney disease, stage 3b; N39.0 Urinary tract infection, site not specified; R80.9 Proteinuria, unspecified; M10.9 Gout, unspecified; N25.81 Secondary hyperparathyroidism of renal origin
CPT/HCPCS: 36415; 80053; 81003; 82043; 82306; 82570; 82728; 83540; 83550; 83735; 83970; 84100; 84550; 85025